=== PATIENT | female | born 1965 | race Caucasian/White ===

== ENCOUNTER 2024-11-09 17:44 | Inpatient (IN) | payer OTHER ==
[2024-11-09 19:37] VITALS: BMI 42.1
[2024-11-09] MEDS ORDERED: Acetaminophen 325 MG TAB PO PRN (19:47)
[2024-11-09 20:58] LABS: Cocaine Metabolite Screen Negative (Negative); THC/Cannabinoid Screen Negative (Negative); Tricyclic Screen PRELIM POSITIVE (Negative)
[2024-11-09] MEDS: Nitroglycerin 2% Ointment 1 INCH/1 GM Packet TOP SCH (22:50)
[2024-11-09] MEDS: QUEtiapine 100 MG TAB PO SCH (23:02)
[2024-11-09] MEDS: Divalproex Sodium DR 500 MG TAB PO SCH (23:04)
[2024-11-09] MEDS: Digoxin 0.5 MG/2 ML AMP SLOW IVP SCH (23:13)
[2024-11-09 23:14] LABS: Troponin I Less than 0.010 ng/mL (< 0.028)
[2024-11-09] MEDS: Nitroglycerin 2% Ointment 1 INCH/1 GM Packet ONE (23:26)
[2024-11-09] MEDS ORDERED: Ondansetron PF 4 MG/2 ML Vial IVP PRN (23:34)
[2024-11-10] MEDS: Digoxin 0.5 MG/2 ML AMP SLOW IVP SCH (00:38)
[2024-11-10 03:14] LABS: #Basophils Less than 0.03 10x3/uL (0.0-0.2); #Eosinophils 0.07 10x3/uL (0.0-0.5); #Monocytes 0.45 10x3/uL (0.0-1.1); #Neutrophils 2.15 10x3/uL (1.5-8.4); %Basophils 0.4 % (0.0-2.0); %Eosinophils 1.2 % (0.0-6.0); %Lymphocytes 52.5 % (18.0-47.0); %Monocytes 7.9 % (0.0-10.0); %Neutrophils 37.8 % (40.0-75.0); Hematocrit 36.6 % (34.9-44.5); Hemoglobin 10.9 g/dL (12.0-15.5); Mean Corpuscular Hemoglobin 23.6 pg (27.0-33.0); Mean Corpuscular Volume 79.4 fL (81.6-98.3); Platelet Count 223 10x3/uL (150-450); Red Blood Cell (RBC) Count 4.61 10x6/uL (3.90-5.03); White Blood Cell (WBC) Count 5.68 10x3/uL (3.5-10.5)
[2024-11-10 03:46] LABS: ALT (SGPT) 10 U/L (Less than 34); AST (SGOT) 18 U/L (11-34); Albumin 3.1 g/dL (3.1-4.5); Alkaline Phosphatase 52 U/L (40-110); Anion Gap 17 mmol/L (10-20); BUN (Urea Nitrogen) 16 mg/dL (9.8-20.1); Bilirubin, Total 0.6 mg/dL (0.3-1.2); Calc. Creatinine Clearance 113 mL/min (70-130); Calcium 8.7 mg/dL (7.8-10.44); Carbon Dioxide 23 mmol/L (23-31); Cardiac Risk 2.5 (Less than 4.5); Chloride 108 mmol/L (98-107); Cholesterol 112 mg/dl (< 200 Desired); Globulin 3.0 g/dL (2.4-3.5); Glucose 85 mg/dL (80-115); HDL Cholesterol 45 mg/dL (>60 Neg Risk); LDL Cholesterol, Calculated 57 mg/dL; Potassium 5.0 mmol/L (3.5-5.1); Sodium 143 mmol/L (136-145); Triglycerides 51 mg/dL (Less than 150)
[2024-11-10 03:52] LABS: Troponin I Less than 0.010 ng/mL (< 0.028)
[2024-11-10] MEDS ORDERED: Nitroglycerin 2% Ointment 1 INCH/1 GM Packet TOP PRN (05:00)
[2024-11-10] MEDS ORDERED: Enoxaparin 40 MG (0.4 mL) SYRINGE SC SCH (09:00)
[2024-11-10 09:40] LABS: Troponin I Less than 0.010 ng/mL (< 0.028)
[2024-11-10] MEDS: Pantoprazole 40 MG DR.TAB PO SCH (10:02)
[2024-11-10] MEDS: Apixaban 5 MG TAB PO SCH (10:02)
[2024-11-10] MEDS: Furosemide 40 MG TAB PO SCH (10:02)
[2024-11-10] MEDS: Digoxin 0.25 MG TAB PO SCH (10:02)
[2024-11-10] MEDS: Carvedilol 25 MG TAB PO SCH (10:04)
[2024-11-10] MEDS: Aspirin 81 mg Enteric Coated Tablet PO SCH (10:04)
[2024-11-10] MEDS ORDERED: ROPINIROLE HCL 5 MG PO SCH (21:00)
[2024-11-10] MEDS: Divalproex Sodium DR 500 MG TAB PO SCH (21:40)
[2024-11-10] MEDS: QUEtiapine 100 MG TAB PO SCH (21:41)
[2024-11-11 12:49] VITALS: BP 98/65; TEMP 98
[2024-11-11] MEDS: Furosemide 40 MG TAB PO SCH (14:10)
== END 2024-11-11 15:55 | disposition home or self-care (01) | DRG 69 ==
LOC: CSHTELE 18:47 → OBSVTOIN 11-11 09:35
PROVIDERS: ADMIT Internal Medicine; ATTEND Hospitalist
DX: G45.9 Transient cerebral ischemic attack, unspecified (principal); I63.9 Cerebral infarction, unspecified; I48.19 Other persistent atrial fibrillation; G81.94 Hemiplegia, unspecified affecting left nondominant side; F41.9 Anxiety disorder, unspecified; I50.9 Heart failure, unspecified; I10 Essential (primary) hypertension; R06.00 Dyspnea, unspecified; G25.81 Restless legs syndrome; I25.119 Atherosclerotic heart disease of native coronary artery with unspecified angina pectoris; R07.9 Chest pain, unspecified; E78.5 Hyperlipidemia, unspecified; E66.9 Obesity, unspecified; K21.9 Gastro-esophageal reflux disease without esophagitis; F20.9 Schizophrenia, unspecified; F39 Unspecified mood [affective] disorder; Z98.890 Other specified postprocedural states; I25.2 Old myocardial infarction; Z88.0 Allergy status to penicillin; Z90.49 Acquired absence of other specified parts of digestive tract; Z79.899 Other long term (current) drug therapy; R29.810 Facial weakness; R29.703 NIHSS score 3; I48.91 Unspecified atrial fibrillation
CPT/HCPCS: 36415; 70450; 70496; 70498; 70551; 71045; 80053; 80061; 80306; 83880; 84484; 85025; 85610; 85730; 93005; 93010; 93306; 96372; 96374; 96376; G0378; J1160; J1650; Q9967